=== PATIENT | male | born 1990 | race Caucasian/White ===

== ENCOUNTER 2024-03-31 11:40 | Emergency (ER) | payer SELFPAY ==
[~2024-03-31] VITALS: Ht 175.3 cm; Wt 70.3 kg
[2024-03-31 11:48] VITALS: BP 132/82; PULSE 88; RESP 18; TEMP 98.2; O2SAT 88
[2024-03-31] MEDS: NACL 0.9% 1,000 ML IV ONE (13:17)
[2024-03-31] MEDS: ONDANSETRON 4 MG/2 ML VIAL IVP ONE (13:19)
[2024-03-31 13:23] LABS: BASOPHILS # (AUTO) 0.1 K/uL (0.00-0.22); BASOPHILS % (AUTO) 0.6 % (0.0-2.0); EOSINOPHILS # (AUTO) 0.1 K/uL (0-0.4); EOSINOPHILS % (AUTO) 0.5 % (0.0-4.0); HEMOGLOBIN 16.4 g/dL (12.0-18.0); LYMPHOCYTES # (AUTO) 2.4 K/uL (2.0-11.5); LYMPHOCYTES % (AUTO) 11.9 % (20.5-51.1); MEAN CORPUSCULAR HEMOGLOBIN 31 pg (27-31); MEAN CORPUSCULAR HGB CONC 34 g/dL (33-37); MEAN CORPUSCULAR VOLUME 91.9 fL (80-94); MONOCYTES # (AUTO) 1.3 K/uL (0.8-1.0); MONOCYTES % (AUTO) 6.7 % (1.7-9.3); NEUTROPHILS % (AUTO) 80.3 % (42.2-75.2); PLATELET COUNT (AUTO) 287 K/uL (140-450); RED BLOOD CELL COUNT(AUTO) 5.34 MIL/uL (4.20-6.10); RED CELL DISTRIBUTION WIDTH 13.6 % (11.6-13.7); WHITE BLOOD COUNT (AUTO) 19.8 K/uL (4.8-10.8)
[2024-03-31 13:50] LABS: ANION GAP 10.5 (8-16); CALCIUM 8.8 mg/dL (8.5-10.1); CARBON DIOXIDE 31.1 mmol/L (21-32); CREATININE 0.9 mg/dL (0.6-1.3); POTASSIUM 3.6 mmol/L (3.5-5.1)
[2024-03-31 14:11] LABS: ALBUMIN 3.7 g/dL (3.4-5.0); BILIRUBIN,DIRECT 0.2 mg/dL (0.0-0.3); TOTAL BILIRUBIN 0.5 mg/dL (0.0-1.0); TOTAL PROTEIN, SERUM 7.3 g/dL (6.4-8.2)
[2024-03-31 15:30] VITALS: BP 121/67; PULSE 87; RESP 18; TEMP 98; O2SAT 100
[2024-03-31] MEDS ORDERED: LOPE1TAB14 PO (16:16)
[2024-03-31] MEDS ORDERED: ONDA-188 SL (16:16)
== END 2024-03-31 16:25 | disposition home or self-care (01) ==
LOC: MED 11:40
DX: A08.4 Viral intestinal infection, unspecified (principal); F20.9 Schizophrenia, unspecified; Z79.899 Other long term (current) drug therapy
CPT/HCPCS: 36415; 71045; 80048; 80076; 83690; 85025; 96361; 96374; 99285; J2405; J7030; Q0092